=== PATIENT | male | born 1940 | race Caucasian/White ===

== ENCOUNTER 2018-08-20 10:08 | Inpatient (IN) ==
--- NOTE | 2018-08-20 11:09 | Diag Imaging Result Doc PS360 ---
EXAM: CHEST-2 VIEWS HISTORY: short of breath TECHNIQUE: Chest two views COMPARISON: 10/29/2017 FINDINGS: There are infiltrates and atelectasis in the left lung base with a small left pleural effusion. The heart remains mildly enlarged. Sternal wires are present. Tiny right pleural effusion. IMPRESSION: Left lower lobe infiltrates and atelectasis with small pleural effusions Electronically signed by Ricki Santos 08/20/2018 11:06 AM
[2018-08-20 11:17] LABS: ALB/GLOB RATIO 1.6; ALBUMIN 3.7 g/dL (3.5-5.0); CALCIUM 8.4 mg/dL (8.8-10.2); CREATININE 1.8 mg/dL (0.7-1.2); POTASSIUM 4.1 mmol/L (3.5-5.1); TOTAL BILIRUBIN 0.86 mg/dL (0.20-1.00)
[2018-08-20] MEDS ORDERED: BUMEX IV ONE (11:40)
[2018-08-20 12:14] LABS: BASO# 0.04 X1000 (0.0-0.2); BASO% 0.6 % (0.0-0.8); EOS# 0.04 X1000 (0.0-0.7); EOS% 0.6 % (0.0-10.0); LYMPH# 1.34 X1000 (1.2-3.4); LYMPH% 20.9 % (20.5-51.1); MCH 31.1 PG (27-31); MCHC 32.5 g/dL (33-37); MCV 95.7 FL (81-99); MONO# 0.66 X1000 (0.11-0.59); MONO% 10.3 % (1.7-9.3); MPV 10.4 FL (7.4-10.4); NEUT# 4.34 X1000 (1.4-6.5); NEUT% 67.6 % (42.2-75.2); PLT 171 X1000 (130-400); RBC 4.18 XMIL (4.7-6.1); RDW 16.4 % (11.5-14.5); WBC 6.42 X1000 (4.8-10.8)
[2018-08-20] MEDS ORDERED: ZOFRAN IV PRN (12:15)
[2018-08-20] MEDS ORDERED: TYLENOL PO PRN (12:15)
[2018-08-20] MEDS ORDERED: NS 1,000 ML IV ONE (12:15)
--- NOTE | 2018-08-20 12:15 | PROVIDER DOCUMENTATION ---
This chart was entered by Marilia Langston Scribe, acting as scribe for Hari Leung MD. HPI-Respiratory General - General Chief Complaint: Shortness of Breath Stated Complaint: SOB Time Seen by Provider: 08/20/18 10:31 Source: patient, family Allergies/Adverse Reactions: Patient Allergies Allergy/AdvReac Type Severity Reaction Status Date / Time Antihistamines - Piperidine Allergy Unknown Verified 04/05/15 12:07 prednisone Allergy Unknown Verified 04/05/15 12:07 Home Medications: Home Medication List Medication Instructions Recorded Confirmed Last Taken Type Furosemide [Lasix] 20 mg PO DAILY 08/20/18 08/20/18 Unknown History - History of Present Illness-Resp Nature of Presenting Problem: 78 year old male presents to the ER with complaint of SOB, coughing and leg cramps for the past few days. Pt's states he has been SOB for the past month but worsening in the past few days. Pt was on Lisinopril but states medication has been switched by PCP once coughing was noticed to increase. Pt denies fever and denies chest pain. Pt states that SOB is worse with exertion. Quality of Pain: reports: aching Onset/Duration: reports: 4 days ago Timing: reports: still present Exposure: reports: unknown cause Cough Quality/Degree: reports: moderate Episode Frequency: chronic episodes Associated Symptoms: reports: cough, shortness of breath, short of breath, wheezing. denies: chest pain/soreness, fever/chills Review of Systems - Adult - REVIEW OF SYSTEMS - ADULT Constitutional: denies: chills, fever Eyes: reports: no symptoms reported Ears, Nose, Mouth & Throat: reports: no symptoms reported Cardiovascular: denies: chest pain, palpitations Respiratory: reports: chronic cough, cough, shortness of breath, wheezing Gastrointestinal: reports: no symptoms reported Genitourinary: reports: no symptoms reported Musculoskeletal: reports: frequent leg cramps. denies: back pain Integumentary: reports: no symptoms reported Neurological: reports: no symptoms reported Psychiatric: reports: no symptoms reported Endocrine: reports: no symptoms reported Hematologic/Lymphatic: reports: no symptoms reported Allergic/Immunologic: reports: no symptoms reported All Other Systems: Reviewed and Negative Past History - Adult - PAST MEDICAL HISTORY-ADULT Review of Records: reports: Nursing Assessment Review, Medications Reviewed Cardiovascular: reports: CHF, HTN, hyperlipidemia Genitourinary: reports: kidney disease Endocrine/Immune: reports: Diabetes, thyroid disorder (hypo) - PRIOR SURGERIES/PROCEDURES Surgical/Procedure History: reports: CABG, tonsillectomy - IMMUNIZATION STATUS Childhood Immunizations: See Nurse Assessment Flu Vaccine: See Nurse Assessment - SOCIAL HISTORY Smoking: denies Physical Exam-General - CONSTITUTIONAL General Appearance: alert, mild distress - EYES Eyes: PERRL/EOMI, pink conjunctivae - HEAD, EARS, NOSE, MOUTH & THROAT HENMT: normocephalic/atraumatic, normal ENT inspection - NECK Neck: supple, normal inspection - RESPIRATORY Respiratory: decreased breath sounds, rales - CARDIOVASCULAR Cardiovascular: normal peripheral pulses, regular rate, rhythm - MUSCULOSKELETAL Back Exam: no CVA tenderness, no vertebral tenderness Extremity: pedal edema (+1 ankles) - SKIN Integumentary: normal color, warm/dry - NEUROLOGIC Neurologic: grossly normal, no motor/sensory deficits - PSYCHIATRIC Psych/Mental Status: normal mood/affect, normal thought content, normal thought process, oriented x 3 Progress - PLAN OF CARE/RESULTS Progress/Plan/Lab Results: Vital Signs - 8 hr 08/20/18 10:17 Temperature 98.3 F Pulse Rate 97 H Respiratory Rate 20 Blood Pressure 145/82 O2 Sat by Pulse Oximetry 89 L Laboratory Results - last 24 hr 08/20/18 08/20/18 08/20/18 09:50 09:50 09:50 Sodium 136 Potassium 4.1 Chloride 99 Carbon Dioxide 23 L Anion Gap 14 BUN 23 H Creatinine 1.8 H Estimated GFR/1.73 m2 37 BUN/Creatinine Ratio 13 Glucose 146 H Calculated Osmolality 278 Calcium 8.4 L Total Bilirubin 0.86 AST 37 H ALT 44 Alkaline Phosphatase 123 H Creatine Kinase 200 Troponin T 0.062 [place]-U[place]qnhq[place] Pept 84253 H Total Protein 6.0 L Albumin 3.7 Globulin 2.3 Albumin/Globulin Ratio 1.6 Orders Category Date Time Status CHEST-2 VIEWS [RAD] Stat Exams 08/20/18 10:43 Completed BNP [PRO B-NATRIURETIC PEPTIDE] Stat Lab 08/20/18 09:50 Completed CBC WITH ELECTRONIC DIFF [HEME] Stat Lab 08/20/18 09:50 Results CMP [COMPREHENSIVE METABOLIC PANEL] [CHEM] Stat Lab 08/20/18 09:50 Completed Cardiac Profile [CK PROFILE] [SP CHEM] Stat Lab 08/20/18 09:50 Completed TROPONIN T Stat Lab 08/20/18 09:50 Completed Bumetanide [Bumex] Med 08/20/18 11:40 Discontinued 1 mg IV NOW ONE Result Diagrams: 08/20/18 09:50 08/20/18 09:50 - CONSULTS/PCP/HOSPITALIST Notification #1 *Consult/PCP/Hospitalist*: Dr. Soto Consult Disposition: Admit Departure - Departure Date of Disposition Decision: 08/20/18 Time of Disposition Decision: 12:14 DIAGNOSIS: CHF (congestive heart failure) Disposition: ADMITTED INPATIENT 09 Certified Medical Emergency: Emergent Condition: Good Referrals and Follow-Ups: Vianca Soto MD [Primary Care Provider] - - Critical Care Note This patient required my direct & personal management of CC.: No Attestation - Physician/ PATT Attestation The physician spent face to face time with patient:: Yes Advanced Practice Provider documentation review:: Supervising physician onsite and consulted in the evaluation and care of this patient. The physician did have a face to face encounter with the patient. This chart was documented by the indicated scribe, (Marilia Langston, Scribe) and accurately reflects the services I performed and decisions made by me, Hari Leung MD, as attested by the provider's signature.
--- NOTE | 2018-08-20 17:41 | HISTORY AND PHYSICAL ---
CHIEF COMPLAINT: Shortness of breath on exertion. No PND. No orthopnea. No swelling of feet. HISTORY OF PRESENT ILLNESS: He is a 78-year-old white male who was last seen in my office in September of last year, came in with shortness of breath. The patient was seen by Dr. Bermudez. Clinical exam compatible with CHF. He has ischemic cardiomyopathy, EF 27%. He was seen before by Dr. Piedra as well as back closer in [place]. Apparently, he was seeing side effects of lisinopril and he stopped for a while and he was given Bumex. Basically admitted to the hospital with acute decompensated congestive heart failure. The patient's family was at bedside in the emergency room. He is waiting to be admitted in Telemetry. PAST MEDICAL HISTORY: 1. BPH. 2. Chronic kidney disease stage 3. 3. Chronic systolic heart failure, EF 27%. 4. Coronary artery disease. 5. Hypertension. 6. Hyperlipidemia. 7. Hypothyroidism. 8. Vitamin D deficiency. PAST SURGICAL HISTORY: Tonsillectomy, bypass x 2 in 2014. MEDICINES: Aspirin, lisinopril 5 mg daily, Bumex and nitroglycerin as needed. ALLERGIES: Reported to prednisone, Demerol, antihistamines. SOCIAL HISTORY: and 2 kids, retired. Lives in [place]. No smoking. No alcohol. No drug abuse. FAMILY HISTORY: Father of stroke at 77. Mom at 87, cause was not known. Last physical exam in my office in September 2017. Patient is not interested in health maintenance, which includes vaccinations, colonoscopy. He does have a living will, DNR. REVIEW OF SYSTEMS: HEENT: No headache. No vision problem. No earache. No sore throat. Neck: No goiter. No lymphadenopathy. No bruit. Cardiopulmonary: History of exertion cough. No chest pain. No PND. No orthopnea. No swelling of feet. Gastrointestinal: No nausea, vomiting, abdominal pain. Genitourinary: No history of hesitancy, frequency, dysuria. Musculoskeletal: No joint pain. Neurologic: No focal symptoms or weakness. PHYSICAL EXAMINATION: VITAL SIGNS: Afebrile. Blood pressure 134/86, 93% on room air. He is not in respiratory distress. HEENT: Atraumatic, normocephalic. Pupils equal, react to light. No anemia. No cyanosis. No jaundice. NECK: JVD slightly elevated. CHEST: Bilateral air entry. No signs of pneumonitis. HEART: Heart sounds are regular. No significant murmurs noted. No gallop. ABDOMEN: Belly is soft, nontender. Good bowel sounds. No peripheral edema, cyanosis. NEUROLOGIC: No obvious neurological deficits. INVESTIGATIONS: CBC: White cell count 6.4, hematocrit 40, platelets 177,000. SMA-7: Sodium 136, potassium 4.1, BUN 23, creatinine 1.8, glucose 146. AST slightly elevated. ProBNP was 35,000. Chest x-ray: Mild CHF. ASSESSMENT AND PLAN: 1. A 78-year-old white male with known history of ischemic cardiomyopathy, EF less than 30%. Stopped taking all the medications. Came in with decompensated congestive heart failure. Plan is oxygen. Will start on Entresto. Repeat the echocardiography. He is to follow up on the labs in the morning. 2. Chronic kidney disease. Creatinine is stable. 3. CAD status post bypass surgery, on aspirin. 4. He is also a candidate for AICD. 5. Hyperlipidemia. Last LDL 180 and he is not interested in taking the statin drugs. 6. Vitamin D deficiency on replacement therapy. 7. Hypothyroidism, stable. Mildly elevated TSH subclinical. 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 Boudreaux. 9. Living will, he is a DNR. Will ask Dr. Piedra to do Cardiology Consult in the morning and will explain the side effects on the medications. cc: Anuj Soto MD MTDD
[2018-08-21] MEDS: ROBITUSSIN PO PRN ×2 (00:08→21:54)
[2018-08-21 05:30] LABS: ALLEN TEST YES; BE -0.6 mmoll (-3.0-3.0); BLOOD TYPE ARTERIAL; HCO3-(ACT) 24.3 mmoll (20.0-26.0); METHB 0.8 % (0.0-1.5); O2(CT) 19.6 mL/dL (15.0-23.0); O2HB 93.7 % (95.0-99.0); PCO2(98.6) 36 mmHg (35-45); PO2(98.6) 74 mmHg (60-100); SAMPLE BLOOD; SAO2 96.5 % (95.0-100.0); THB 14.9 g/dL (11.5-17.4); pH(98.6) 7.42 (7.35-7.45)
[2018-08-21 05:31] LABS: MODALITY CANNULA
[2018-08-21 07:38] LABS: BASO# 0.03 X1000 (0.0-0.2); BASO% 0.4 % (0.0-0.8); EOS# 0.13 X1000 (0.0-0.7); EOS% 1.9 % (0.0-10.0); HEMATOCRIT 37.6 % (42.0-52.0); HEMOGLOBIN 12.2 g/dL (14.0-18.0); LYMPH# 1.55 X1000 (1.2-3.4); LYMPH% 22.8 % (20.5-51.1); MCHC 32.4 g/dL (33-37); MCV 95.7 FL (81-99); MONO# 0.92 X1000 (0.11-0.59); MONO% 13.5 % (1.7-9.3); MPV 9.8 FL (7.4-10.4); NEUT# 4.17 X1000 (1.4-6.5); NEUT% 61.4 % (42.2-75.2); PLT 172 X1000 (130-400); RBC 3.93 XMIL (4.7-6.1); RDW 16.4 % (11.5-14.5)
--- NOTE | 2018-08-21 07:53 | EKG Report ---
Test Performed on : 08/21/2018 07:22:46 AM Test Reason : cp Blood Pressure : / mmHG Vent. Rate : 087 BPM Atrial Rate : 087 BPM P-R Int : 168 ms QRS Dur : 104 ms QT Int : 410 ms P-R-T Axes : 031 001 025 degrees QTc Int : 493 ms Normal sinus rhythm. Cannot rule out Inferior infarct (cited on or before 05-APR-2015) Abnormal ECG When compared with ECG of 20-AUG-2018 10:16, (Unconfirmed) premature ventricular complexes. are no longer present ST now depressed in Anterior leads Confirmed by Lizet DANIELS, Attila ([id number]) on 08/21/2018 9:21:04 AM
[2018-08-21 08:00] LABS: ALB/GLOB RATIO 1.4; ALBUMIN 3.6 g/dL (3.5-5.0); CALCIUM 8.5 mg/dL (8.8-10.2); CREATININE 1.8 mg/dL (0.7-1.2); MAGNESIUM 2.3 mg/dL (1.5-2.7); POTASSIUM 3.9 mmol/L (3.5-5.1); TOTAL BILIRUBIN 0.55 mg/dL (0.20-1.00); TOTAL PROTEIN 6.2 g/dL (6.3-8.3)
[2018-08-21] MEDS ORDERED: ENTRESTO 24 MG-26 MG TABLET PO SCH (09:00)
--- NOTE | 2018-08-21 10:32 | Diag Imaging Result Doc PS360 ---
EXAM: CHEST-2 VIEWS HISTORY: hypoxia TECHNIQUE: Chest two views COMPARISON: 08/20/2018 FINDINGS: There are infiltrates and atelectasis in the left lung base. These findings are slightly more pronounced than on the prior study. There is a small to moderate-sized left pleural effusion with a small right pleural effusion. Cardiomegaly remains. No pulmonary edema. Sternal wires are present. IMPRESSION: Mild interval worsening. Electronically signed by Ricki Santos 08/21/2018 10:29 AM
[2018-08-21] MEDS ORDERED: LASIX IV ONE (13:08)
--- NOTE | 2018-08-21 13:20 | EKG Report ---
Test Performed on : 08/20/2018 10:16:05 AM Test Reason : ED. NO ORDER IN [place] Blood Pressure : / mmHG Vent. Rate : 094 BPM Atrial Rate : 094 BPM P-R Int : 168 ms QRS Dur : 130 ms QT Int : 384 ms P-R-T Axes : 043 011 025 degrees QTc Int : 480 ms Sinus rhythm. with occasional premature ventricular complexes. Possible Left atrial enlargement Nonspecific intraventricular block Possible Inferior infarct (cited on or before 05-APR-2015) Abnormal ECG When compared with ECG of 29-OCT-2017 12:37, premature ventricular complexes. are now present Unconfirmed Result
--- NOTE | 2018-08-21 14:16 | CARDIOLOGY CONSULTATION ---
DATE: 08/21/2018 REASON FOR CONSULTATION: Congestive heart failure. HISTORY: Mr. Grayson Waldron is a 78-year-old gentleman with history of coronary artery disease, coronary artery bypass grafting, ischemic cardiomyopathy, mitral regurgitation comes with complaints of increasing shortness of breath. 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 He was taking lisinopril. However, that was stopped because of side effects and he was also on diuretics which were again discontinued. Patient comes with having noticed increasing dyspnea on exertion and was orthopneic, admitted to the hospital. The patient is in congestive heart failure. X-ray revealed pleural effusion and heart failure. The patient denies chest pain shortness of breath suggestive of angina. However as far as the dyspnea on exertion is concerned he says it has progressed over the last few months and decompensated recently. He also has chronic renal insufficiency. In the past he said that he was intolerant to Coreg which caused him significant weakness while he was in a store. He had something like a stroke-like features which he mentions. There is no palpitations, there is no dizziness or syncope. REVIEW OF SYSTEM: GI: There is no history of nausea, vomiting, diarrhea. There is no history of hematemesis or melena. Central nervous system: No focal weakness to suggest a CVA or TIA. Genitourinary: There is no dysuria or hematuria. PAST MEDICAL HISTORY: 1. Coronary artery disease, status post coronary artery bypass grafting in 2004 with ARREDONDO to left anterior descending artery, SVG to OM. 2. Ischemic cardiomyopathy. Last ejection fraction 25% on record. 3. Moderate mitral regurgitation. 4. History of heart failure. 5. Impaired glucose tolerance. 6. Hypothyroidism. 7. Chronic renal insufficiency. Creatinine of 1.8. 8. Vitamin D deficiency. 9. Hyperlipidemia. SOCIAL HISTORY: Patient is , retired lives in [place]. He does not smoke, does not drink. ALLERGIES: Allergic to Demerol, prednisone. Intolerant to Bystolic. He has had side effects with Coreg as mentioned above. PHYSICAL EXAMINATION: Vital Signs: Blood pressure was 134/86. Cardiovascular: First and second heart sounds were heard. Jugular venous pressure was elevated. There was a soft systolic murmur. Respiratory System: Examination revealed dullness at both bases with inspiratory crackles. Abdomen: Soft, obese nontender. There was no guarding or rigidity. Bowel sounds were heard. Central nervous system: Alert and oriented. Moving all 4 extremities. Extremities: Examination of extremities revealed trace edema. LABORATORY EXAMINATION: Revealed sodium 136, potassium 3.9, BUN 22, creatinine 1.8. ProBNP elevated at 31,096. Troponin was negative. Chest x-ray, revealed small to moderate left pleural effusion with a small right pleural effusion, cardiomegaly with worsening of effusion. Initial chest x-ray revealed left lower lobe infiltrate with bilateral effusions. ASSESSMENT AND PLAN: 1. Mr. Philip Waldron is a 78-year-old gentleman who has coronary artery disease, status post coronary artery bypass grafting, ischemic cardiomyopathy, ejection fraction of 25% in the past and chronic renal insufficiency. He comes in with complaints of increasing shortness of breath or orthopnea. Patient is in congestive heart failure with bilateral pleural effusion. His echocardiogram today is pending. 2. As far as medications are concerned, I had a very detailed discussion with the patient, his son as well as his . He has been started on Entresto. We will continue Entresto on a twice daily basis. 3. As far as beta-blockers are concerned, he had problems with Bystolic and with Coreg in the past. He had some stroke-like symptoms which he said was weakness. No definite stroke. As a result we will avoid put medications and put him on Toprol-XL 25 mg to be taken twice daily and we will titrate dosage as required. 4. As far as diuretics are concerned, he received dosage of Bumex. I will put him on Lasix 40 mg IV twice daily and we will get a chest x-ray in the morning. If necessary if his pleural effusion does not improve we will probably need to tap the left pleural effusion if required which we will evaluate and probably have that done if required on Tuesday. 5. As far as his LDL is concerned was 180. I impressed upon him that he needs to be on medications. I have started him on Lipitor 40 mg a day. 6. He is a candidate for automatic implantable cardioverter-defibrillator placement. However he has not been taking any guidelines based management and I have impressed upon him that he did he will benefit from an automatic implantable cardioverter-defibrillator placement as an outpatient. He is willing to consider that. In the past he did not want any automatic implantable cardioverter-defibrillator placement. Thank you for the consult. We will follow hospital course. cc: MD Anuj Wolfe MD
--- NOTE | 2018-08-21 17:56 | ECHO REPORT ---
ORDER DATE: 08/20/2018 INTERPRETING PHYSICIAN: Dr. Marsh REQUESTING PHYSICIAN: Dr. Anuj Soto. CLINICAL INDICATIONS: A 78-year-old male with dyspnea and cough. M-MODE MEASUREMENTS: Right ventricle: cm. Left ventricle end diastole: 6.8 cm. Left ventricle end systole: 6.6 cm. Posterior wall: 0.9 cm. Interventricular septum: 0.9 cm. Left atrium: 4.0 cm. Aortic root: 3.5 cm. SUMMARY OF 2-DIMENSIONAL IMAGING: The study is difficult because the left ventricular chamber is dilated significantly. The left ventricular systolic function is severely impaired in the range of 18-20%. There is akinesis of the entire inferior wall, dyskinesis of the left lateral wall and posterior segment of the left ventricle. There is thinning of the posterior wall. The aortic valve shows sclerosis of the cusp without aortic stenosis. Maximum gradient is 12 mmHg; mean gradient is 7 mmHg. The pulmonic valve shows moderate degree of regurgitation. Tricuspid valve shows moderate degree of regurgitation. Pulmonary pressure estimated at 51 mmHg. Mitral valve is thickened. Color flow mapping of the mitral valve indicates moderately severe to possibly severe degree of mitral regurgitation. The doppler pattern of the pulmonary venous flow shows predominance of the diastolic component with a short deceleration time. The mitral inflow shows a single filling wave. The patient appears to be in either atrial flutter or atrial fibrillation. Both atria are significantly dilated. There is no pericardial effusion, mass or thrombus. The right ventricle is small in size with slight dysfunction. The study is consistent with ischemic cardiomyopathy. Clinical correlation is recommended. cc: MD Anuj Desir MD [facility]
[2018-08-21] MEDS: LOVENOX SUBQ SCH (18:31)
--- NOTE | 2018-08-21 18:41 | PROGRESS NOTE ---
DATE: 08/21/2018 SUBJECTIVE: Appreciated Dr. Leal consult. Patient had cough last night. I related to the family that it is related to cardiac asthma and congestive heart failure, nothing to do with the Lisinopril. The patient's is very meticulous of the side effects and he was afraid of taking any medications. OBJECTIVE: On exam, he has elevated JVD. Slight gallop. Belly is soft, nontender. No edema noted. INVESTIGATIONS: Chest x-ray with worsening of pleural effusions bilaterally. CBC: White cell count 6.8, hematocrit 37.6, platelet 172. ABG: pH is 7.42, pCO2 of 36, pO2 of 74, on 28%. SMA- 7: Creatinine 1.8. ProBNP 31,000. Echocardiography showed pulmonary hypertension, ischemic cardiomyopathy, EF less than 20%. ASSESSMENT: A 78-year-old, white male, ischemic cardiomyopathy, acute decompensated congestive heart failure due to noncompliance. PLAN: 1. Daily weights, fluid restrictions, IV Lasix 40 q.12 and daily BMP and chest x-ray. 2. Optimize the treatment by Entresto and metoprolol and also added Lipitor. 3. He has a living will, Do Not Resuscitate. 4. Deep vein thrombosis prophylaxis with Lovenox. 5. Also consider AICD down the line I appreciated Cardiology consult. LEVEL OF DOCUMENTATION: 25 minutes. cc: Anuj Soto MD
[2018-08-21] MEDS: LIPITOR PO SCH (21:35)
[2018-08-21] MEDS: TOPROL XL PO SCH (21:35)
[2018-08-21] MEDS: LASIX IV SCH (21:35)
[2018-08-21] MEDS: ENTRESTO 24 MG-26 MG TABLET PO SCH (21:35)
--- NOTE | 2018-08-22 06:53 | EKG Report ---
Test Performed on : 08/22/2018 06:48:50 AM Test Reason : cad chf Blood Pressure : / mmHG Vent. Rate : 077 BPM Atrial Rate : 077 BPM P-R Int : 164 ms QRS Dur : 120 ms QT Int : 444 ms P-R-T Axes : 019 -03 117 degrees QTc Int : 502 ms Sinus rhythm. with occasional premature ventricular complexes. Possible Left atrial enlargement Nonspecific intraventricular conduction delay Nonspecific ST and T wave abnormality Abnormal ECG When compared with ECG of 21-AUG-2018 07:22, premature ventricular complexes. are now present T wave inversion now evident in Anterior leads Confirmed by Lizet DANIELS, Attila ([id number]) on 08/22/2018 8:38:01 AM
--- NOTE | 2018-08-22 07:20 | Diag Imaging Result Doc PS360 ---
EXAM: CHEST-2 VIEWS HISTORY: hypoxia TECHNIQUE: Chest two views COMPARISON: 08/21/2018 FINDINGS: Interval decrease in the atelectasis and infiltrates in the left lung base. There are small pleural effusions which remain. Heart is mildly prominent. Sternal wires are present. No pulmonary edema. IMPRESSION: Overall interval improvement. Electronically signed by Ricki Santos 08/22/2018 7:18 AM
[2018-08-22 07:26] LABS: CALCIUM 8.2 mg/dL (8.8-10.2); POTASSIUM 3.5 mmol/L (3.5-5.1)
[2018-08-22] MEDS ORDERED: TOPROL XL PO SCH (09:00)
[2018-08-22] MEDS: ENTRESTO 24 MG-26 MG TABLET PO SCH ×2 (09:44→20:34)
[2018-08-22] MEDS: ASPIRIN PO SCH (09:44)
[2018-08-22] MEDS: TOPROL XL PO SCH ×2 (09:45→20:34)
[2018-08-22] MEDS: LASIX IV SCH ×2 (09:45→20:34)
[2018-08-22] MEDS: LOVENOX SUBQ SCH (17:28)
--- NOTE | 2018-08-22 20:13 | PROGRESS NOTE ---
DATE: 08/22/2018 SUBJECTIVE: The patient's coughing is much better. Results of echocardiography findings discussed; son is at bedside. He had excellent diuresis, decrease in the PND and orthopnea. OBJECTIVE: On examination, temperature is 98.1 degrees, pulse is 75, blood pressure is 113/50. JVD is decreased. Gallop is decreased. Improved air entry on the left side at the base. No peripheral edema. Intake and output so far about -5 L. LABORATORY DATA: SMA 7: Sodium 140, potassium 3.5, BUN 20, creatinine 2.0. DIAGNOSTIC DATA: Echocardiography findings: EF is less than 20%. ASSESSMENT AND PLAN: 1. Acute ischemic cardiomyopathy, congestive heart failure due to systolic dysfunction. Excellent management by Dr. Leal. Family agreed about his recommendations which include aspirin, Entresto, intravenous Lasix twice daily. 2. Deep venous thrombosis prophylaxis with Lovenox. 3. Optimize the treatment for congestive heart failure with metoprolol and also keep the LDL less than 70. Added on Lipitor. 4. We will check the BMP and chest x-ray in the morning. 5. Chronic kidney disease, stable. Will follow up. Level of documentation 25 minutes. cc: Anuj Soto MD
[2018-08-22] MEDS: LIPITOR PO SCH (20:34)
[2018-08-23 07:38] LABS: CALCIUM 7.8 mg/dL (8.8-10.2); CREATININE 1.8 mg/dL (0.7-1.2); POTASSIUM 3.4 mmol/L (3.5-5.1)
--- NOTE | 2018-08-23 07:48 | Diag Imaging Result Doc PS360 ---
EXAM: CT THORAX W/O CONTRAST INDICATION: assess for pleural effusion TECHNIQUE: This exam was performed using automated exposure control, adjustment of mA or kV according to patient size, and/or use of iterative reconstruction technique. COMPARISON: None. FINDINGS: There is a moderate-sized left pleural effusion and a small to moderate-sized right effusion. The effusion on the left appears partially loculated. There is atelectasis adjacent to the effusions bilaterally. There is a focal groundglass opacity in the right upper lobe on image 43 of series 3 anteriorly suggesting nonspecific focal pneumonitis. There is moderate cardiomegaly. There are CABG changes. There is extensive aortic atherosclerotic disease. There are small shotty nonspecific mediastinal lymph nodes. Limited views of the upper abdomen reveal an atrophic left kidney. The bony structures of the thorax are grossly intact. IMPRESSION: 1.Partially loculated moderate-sized left pleural effusion and small to moderate-sized layering right effusion with adjacent atelectasis bilaterally. 2.Small groundglass focus involving the right upper lobe as described suggesting nonspecific mild focal pneumonitis. 3.Cardiomegaly. 4.Other incidental/nonacute findings detailed above. Electronically signed by Philip Cavazos 08/23/2018 7:46 AM
[2018-08-23] MEDS ORDERED: KLOR-CON PO ONE (08:13)
--- NOTE | 2018-08-23 09:54 | Diag Imaging Result Doc PS360 ---
CHEST-2 VIEWS - 08/23/2018 INDICATION: hypoxia COMPARISON: 08/22/2018 FINDINGS: There has been decrease in the small left pleural effusion. There is also decrease in the trace right pleural effusion. There is slight decrease in the cardiomegaly. Pulmonary vascularity is top normal. No infiltrates or definite edema. IMPRESSION: Improvement from prior. Electronically signed by Orlin Silva 08/23/2018 9:52 AM
[2018-08-23] MEDS: ASPIRIN PO SCH (10:42)
[2018-08-23] MEDS: LEVAQUIN PO SCH ×2 (10:44→11:56)
[2018-08-23] MEDS: TOPROL XL PO SCH ×2 (10:47→21:58)
[2018-08-23] MEDS: ENTRESTO 24 MG-26 MG TABLET PO SCH (10:48)
[2018-08-23] MEDS: LASIX IV SCH ×2 (10:51→11:57)
[2018-08-23 12:28] LABS: INR 1.21; PROTIME 16.3 Seconds (11.0-16.0)
[2018-08-23 12:29] LABS: PTT 27.5 Seconds (22.3-41.8)
--- NOTE | 2018-08-23 13:04 | CARDIOLOGY PROGRESS NOTE ---
DATE: 08/23/2018 SUBJECTIVE: Patient's shortness of breath has improved. He denies chest pain. There are no palpitations. He does not complain of any dizziness or syncope. OBJECTIVE: On examination, blood pressure was 118/69. First and second heart sounds were heard. There was a soft systolic murmur. Respiratory system: Dullness at bases. Abdomen: Soft, nontender. There was no guarding or rigidity. Bowel sounds were heard. Central nervous system: Alert, oriented, and was moving all 4 extremities. Examination of extremities revealed no pedal edema. DIAGNOSTIC STUDIES: His CT scan was done of his chest, which revealed partially loculated moderate-sized left pleural effusion, small to moderate size layering in the right pleural effusion with nonspecific focal pneumonitis, right upper lobe. PROBLEM LIST: 1. Coronary artery disease, status post coronary artery bypass grafting. 2. Systolic heart failure. 3. Severe left ventricular dysfunction and congestive heart failure. PLAN: 1. We will decrease his Lasix to 40 mg a day. 2. Given his focal likely pneumonitis, I have added Levaquin 500 mg a day. 3. He has got a moderate-sized pleural effusion which is on the left which is loculated. This I do not think will improve with diuretics alone. I have discussed with him, his son, and his that would recommend ultrasound-guided thoracentesis which he is willing to undergo. We will send the fluid for cultures as well as cytology. 4. I have not made any other changes to his medication. cc: MD Anuj Wolfe MD
--- NOTE | 2018-08-23 14:18 | Diag Imaging Result Doc PS360 ---
CHEST-2 VIEWS - 08/23/2018 2:02 PM INDICATION: POST LEFT THORA COMPARISON: 9:44 AM FINDINGS: There has been good drainage of the left pleural effusion. No new abnormalities. No pneumothorax. There is a trace residual right pleural effusion. IMPRESSION: Successful left thoracentesis with no complication. Electronically signed by Orlin Silva 08/23/2018 2:16 PM
--- NOTE | 2018-08-23 14:21 | Diag Imaging Result Doc PS360 ---
US THORACENTESIS W/IMAGE GUIDE - 08/23/2018 INDICATION: left pleural effusion TECHNIQUE: The risks and benefits of the procedure were discussed with the patient. All questions were answered. Written and verbal informed consent was obtained. Overlying skin was prepped and draped in sterile fashion. Anesthesia was achieved with injection of 10 cc of 1% lidocaine. COMPARISON: CT from 08/23/2018 7:26 AM FINDINGS: Ultrasound scanning demonstrated a trace right and small to moderate left pleural effusion. The left pleural fluid was drained. 700 cc were removed. Due to the slow nature of the drainage, the patient was sitting upright with his legs very dependent for rather long period of time. Towards the end of the drainage, the patient became unresponsive. A critical assistance team call was performed. The procedure was ended successfully. Nursing and respiratory therapy came to check on the patient immediately. Within about three minutes, the patient had become somewhat more responsive. Vital signs were checked and these were normal. Within five minutes after the onset of unresponsiveness, the patient had returned to baseline. Postprocedural chest x-rays demonstrated no complication. IMPRESSION: Successful right-sided thoracentesis. The patient became orthostatic due to being upright for a rather long duration during the procedure and lost consciousness for about three minutes. No complication otherwise. Electronically signed by Orlin Silva 08/23/2018 2:19 PM
[2018-08-23] MEDS: LOVENOX SUBQ SCH (18:20)
--- NOTE | 2018-08-23 21:31 | PROGRESS NOTE ---
DATE: 08/23/2018 SUBJECTIVE: The patient is doing better. Apparently had a CT of the chest, bilateral pleural effusion left worse than the right side. His CHF symptoms are much improved. Apparently, he had a thoracentesis done on the left side due to loculated effusion. Removed 700 mL of fluid. The patient had a syncope spell due to orthostatic hypotension. Entresto was held. IV Lasix was decreased. Currently, patient is doing very well. EXAMINATION: Vital Signs: Temperature is 98, pulse is 80, blood pressure 121/62 at 2 L nasal cannula 99%. HEENT Exam: Within normal limits. Chest: Auscultation this morning with crackles on the left lung. Heart: Sounds are regular. No gallop. Belly: Soft, nontender. No edema. ASSESSMENT: 1. Acute congestive heart failure due to systolic dysfunction. Ejection fraction is less than 30%. 2. Loculated pleural effusion, status post thoracentesis. 3. History of noncompliance. PLAN OF CARE: Hold the Entresto. Decrease IV Lasix and repeat the chest x-ray, BMP in the morning. Check orthostatic blood pressure. Slowly titrate Entresto. Continue on metoprolol and Lipitor. Laboratory data showed hypokalemia. Creatinine 1.8 and replace the potassium today by mouth. Currently stable. Also, we will evaluate the AICD down the line if the patient agrees. CODE STATUS: Living Will, Do Not Resuscitate. LEVEL OF DOCUMENTATION: 35 minutes. cc: Anuj Soto MD
[2018-08-23] MEDS: LIPITOR PO SCH ×2 (21:58→21:59)
--- NOTE | 2018-08-24 07:40 | Diag Imaging Result Doc PS360 ---
EXAM: CHEST-2 VIEWS 08/24/2018 HISTORY: hypoxia TECHNIQUE: PA and lateral chest COMMENT: There is blunting of both costophrenic angles. The heart size is slightly enlarged. The lungs are otherwise clear and unchanged since 08/23/2018. IMPRESSION: Small bilateral pleural effusions. Electronically signed by Marco Garland 08/24/2018 7:38 AM
[2018-08-24 08:00] LABS: CALCIUM 8.2 mg/dL (8.8-10.2); CREATININE 1.8 mg/dL (0.7-1.2); POTASSIUM 3.8 mmol/L (3.5-5.1)
[2018-08-24] MEDS: LEVAQUIN PO SCH ×2 (10:04→22:44)
[2018-08-24] MEDS: TOPROL XL PO SCH ×2 (10:05→20:22)
[2018-08-24] MEDS: ASPIRIN PO SCH (10:05)
[2018-08-24] MEDS: LASIX IV SCH (10:05)
--- NOTE | 2018-08-24 16:09 | CARDIOLOGY PROGRESS NOTE ---
DATE: 08/24/2018 SUBJECTIVE: The patient is status post thoracentesis. Does not complain of any chest pain. His shortness of breath has improved. Does not complain of any palpitations. Blood pressure was 126/66. OBJECTIVE: Heart: First and second heart sounds were heard. There was dullness at the bases with a few scattered crepitations. Abdomen: Abdomen was soft, nontender. There was no guarding or rigidity. Bowel sounds were heard. Central nervous system: Alert and was moving all 4 extremities. Extremities: Examination of extremities revealed no pedal edema. HEENT: Atraumatic, normocephalic. Pupils were equal, reacting to light. LABS: Sodium 139, potassium 3.8, BUN 24, creatinine 1.8. ProBNP elevated at 31,096. ASSESSMENT AND PLAN: Mr. Philip Waldron underwent thoracentesis. Symptomatically, he has improved. He has a history of coronary artery disease, coronary artery bypass grafting, congestive heart failure, severe left ventricular dysfunction. RECOMMENDATIONS: 1. I have advised physical therapy and occupational therapy to help with mobility and movement. 2. He is on multiple medications at the present time for his severe LV dysfunction. I have not made any changes. 3. He is on Lasix 40 mg IV daily. Before discharge, we will transition him to p.o. Lasix. 4. He had an infiltrate noted on the CT scan. Started on Levaquin. Does not complain of any allergies. 5. Hyperlipidemia. He is to continue with atorvastatin. 6. As far as Entresto is concerned, would recommend restarting his Entresto in the morning, decrease his Lasix to 40 mg p.o. daily. I suspect his renal function worsened secondary to IV diuresis. cc: MD Anuj Wolfe MD
[2018-08-24] MEDS: LOVENOX SUBQ SCH (18:26)
[2018-08-24] MEDS: LIPITOR PO SCH (20:22)
--- NOTE | 2018-08-24 20:49 | PROGRESS NOTE ---
DATE: 08/24/2018 SUBJECTIVE: Last night, his blood pressure was dropped to 70 orthostatic total. He was negative for 8 L of fluid. is at bedside. Chest x-ray is improving. This morning blood pressure dropped to 100. EXAMINATION: Vital Signs: Temperature is 97.9, pulse is 85, blood pressure 134/69. Neck: On exam, JVD is decreased. Lungs: Good air entry. Decreased crackles. Heart: Sounds are regular. Extremities: No peripheral edema. LABS: Sodium 139, potassium 3.8, BUN 24, creatinine 1.8. ASSESSMENT AND PLAN: 1. Acute decompensated congestive heart failure due to ischemic cardiomyopathy. 2. Noncompliance. 3. Orthostatic hypotension due to over-diuresis. 4. Chronic kidney disease. Plan is change the Lasix to p.o. daily, metoprolol 25 p.o. b.i.d., Entresto will slowly start. 5. Hyperlipidemia on Lipitor contributing to orthostatic blood pressure changes. 6. Deep venous thrombosis prophylaxis with Lovenox. LEVEL OF DOCUMENTATION: 25 minutes. cc: Anuj Soto MD
[2018-08-25 07:28] LABS: CALCIUM 8.7 mg/dL (8.8-10.2); CREATININE 1.8 mg/dL (0.7-1.2)
--- NOTE | 2018-08-25 08:24 | EKG Report ---
Test Performed on : 08/25/2018 08:16:24 AM Test Reason : CP Blood Pressure : / mmHG Vent. Rate : 085 BPM Atrial Rate : 085 BPM P-R Int : 160 ms QRS Dur : 130 ms QT Int : 404 ms P-R-T Axes : 044 -16 131 degrees QTc Int : 480 ms Normal sinus rhythm. Possible Left atrial enlargement Left ventricular hypertrophy with QRS widening and repolarization abnormality Inferior infarct , age undetermined Abnormal ECG When compared with ECG of 22-AUG-2018 06:48, premature ventricular complexes. are no longer present T wave inversion no longer evident in Anterior leads Confirmed by Ramu DANIELS, Ezekiel Calloway ([id number]) on 08/27/2018 4:38:49 PM
[2018-08-25] MEDS: ENTRESTO 24 MG-26 MG TABLET PO SCH ×2 (11:01→21:42)
[2018-08-25] MEDS: TOPROL XL PO SCH ×2 (11:01→21:42)
[2018-08-25] MEDS: PLAVIX PO SCH (11:01)
[2018-08-25] MEDS: LEVAQUIN PO SCH (11:02)
[2018-08-25] MEDS: ASPIRIN PO SCH (11:02)
[2018-08-25] MEDS: LASIX PO SCH (11:02)
[2018-08-25] MEDS: LOVENOX SUBQ SCH (11:05)
--- NOTE | 2018-08-25 15:35 | CARDIOLOGY PROGRESS NOTE ---
DATE: 08/25/2018 PROBLEM LIST: 1. Coronary artery disease. 2. Severe left ventricular dysfunction. 3. Congestive heart failure. 4. Pleural effusion. 5.Pneumonia 6. Nonqmi new SUBJECTIVE: The patient had chest discomfort overnight and cardiac enzymes were abnormal. He had abnormal cardiac enzymes suggestive of non-Q-wave myocardial infarction. We had a detailed discussion with the patient. He does not want to pursue any invasive coronary angiography. He is pain free no worsening sob. Complains of feeling weak. PHYSICAL EXAMINATION: Vital Signs: Blood pressure was 102/70. Cardiovascular: First and second heart sounds were heard. There was no S3 gallop. Respiratory: Decreased breath sounds at the bases. Abdomen: Soft.Extremities no pedal edema. I had a detailed discussion with the patient and the patient's . They do not want to be on any medications as listed below. He does not want to be taking Plavix, Lovenox, beta-blockers, or atorvastatin either. Risks and benefits of all the medications were explained to him. I also explained to the patient as to why Plavix was started today. We will also inform Dr. Soto of patients wishes. cc: MD Anuj Wolfe MD [facility]
[2018-08-25] MEDS: ROBITUSSIN PO PRN (17:24)
--- NOTE | 2018-08-25 18:37 | PROGRESS NOTE ---
DATE: 08/25/2018 CHIEF COMPLAINT: Chest pain last night. PHYSICAL EXAMINATION: On examination, temperature is 98 degrees, pulse is 78, blood pressure is 120/64.HEENT: Exam within normal limits. Chest is clear. Heart sounds are regular. Belly is soft, nontender. No edema noted. INVESTIGATIONS: EKG: Normal sinus, nothing acute. Laboratories: Creatinine 1.8. CK was negative, troponin was positive. ASSESSMENT AND PLAN: 1. Non-Q wave myocardial infarction. Discussed with Dr. Leal. Transferred to [facility]. Initiated Plavix, Lovenox, metoprolol. The patient is refusing for any treatment. 2. The patient and family think Levaquin is causing the problem. I do not see any evidence of infection. Discontinue Levaquin. 3. Continue on Lovenox and aspirin and Entresto and change the Lasix 40 daily. 4. The patient is stable, and he is refusing any treatment. 5. Living will: Do Not Resuscitate. 6. Continue to follow up over the weekend. Optimize the treatment. LEVEL OF DOCUMENTATION: 35 minutes with the plan of care, discussing with the family since the situation is somewhat critical. cc: Anuj Soto MD
--- NOTE | 2018-08-25 19:13 | Diag Imaging Result Doc PS360 ---
EXAM: CHEST-PORTABLE HISTORY: CHF TECHNIQUE: Portable chest single view COMPARISON: 08/24/2018 FINDINGS: The lungs are well expanded. The heart is mildly enlarged. Sternal wires are present. The vessels are not distended. There are no infiltrates. No effusion identified. IMPRESSION: Cardiomegaly, but no congestive failure. Electronically signed by Ricki Santos 08/25/2018 7:10 PM
[2018-08-25] MEDS: LIPITOR PO SCH (20:30)
[2018-08-26] MEDS: LOVENOX SUBQ SCH ×3 (00:04→20:08)
[2018-08-26 06:27] LABS: CALCIUM 8.2 mg/dL (8.8-10.2); CREATININE 1.8 mg/dL (0.7-1.2); MAGNESIUM 2.2 mg/dL (1.5-2.7); POTASSIUM 4.1 mmol/L (3.5-5.1)
[2018-08-26] MEDS: PLAVIX PO SCH (08:22)
[2018-08-26] MEDS: ENTRESTO 24 MG-26 MG TABLET PO SCH (08:22)
[2018-08-26] MEDS: ASPIRIN PO SCH (08:22)
[2018-08-26] MEDS: TOPROL XL PO SCH ×2 (08:22→20:07)
[2018-08-26] MEDS: LASIX PO SCH (08:22)
--- NOTE | 2018-08-26 11:11 | PROGRESS NOTE ---
DATE: 08/26/2018 SUBJECTIVE: Mr. Waldron has orthostatic hypotension. His blood pressure dropped from 101/55 to 67/45. He has been advised to stay in bed and urinate, probably either use a diaper or catheter or use a urine pot. However, he wants to stand up every time when he wants to urinate. He has fallen, passed out. He injured his right external ear where he has bruises. He has also bruises on his right arm. His lungs are clear. Heart sounds are normal. He has positive troponins. Electrolytes are normal. BUN was 27, creatinine 1.8. Chest x-ray shows cardiomegaly. He had pleural fluid. So far, the cultures are negative. I told him to call the nursing staff every time he wants to get up, or nursing staff can help him take to the bathroom if he can tolerate it, we can do that. Otherwise he will need to stay in bed. He has agreed to that for the time being. -2 cc: MD Anuj Worthington MD
--- NOTE | 2018-08-26 11:13 | PROGRESS NOTE ---
DATE: 08/26/2018 ADDENDUM: Mr. Waldron discussed with his about his condition. She wants us to cut down on the medication, Lasix to 20 mg and cut down the Entresto to only 1 time a day. We will try to do that. cc: MD Anuj Worthington MD
[2018-08-26] MEDS: ROBITUSSIN PO PRN (17:39)
[2018-08-26] MEDS: LIPITOR PO SCH (20:07)
[2018-08-27 06:23] LABS: CALCIUM 8.4 mg/dL (8.8-10.2); CREATININE 1.8 mg/dL (0.7-1.2); MAGNESIUM 2.2 mg/dL (1.5-2.7); POTASSIUM 4.5 mmol/L (3.5-5.1)
[2018-08-27] MEDS: ASPIRIN PO SCH (08:31)
[2018-08-27] MEDS: ENTRESTO 24 MG-26 MG TABLET PO SCH (08:31)
[2018-08-27] MEDS: TOPROL XL PO SCH ×2 (08:32→20:14)
[2018-08-27] MEDS: PLAVIX PO SCH (08:32)
[2018-08-27] MEDS: LOVENOX SUBQ SCH ×2 (08:32→20:14)
[2018-08-27] MEDS ORDERED: LASIX LIQUID PO SCH (09:00)
--- NOTE | 2018-08-27 12:49 | PROGRESS NOTE ---
DATE: 08/27/2018 Mr. Waldron is feeling better. His blood pressure today was 93/49. Overall, the pressure has improved. He does not have much evidence of orthostatic hypotension. No more history of fall. He has been going to the bathroom with help. He is not very dizzy. His electrolytes are normal. Magnesium was 2.2. We reduced the Lasix from 40 to 20 mg yesterday. BUN is 26, creatinine 1.5. Overall condition is stable. We are going to continue with the current management on him. -5 cc: MD Anuj Worthington MD
[2018-08-27] MEDS: ROBITUSSIN PO PRN (19:43)
[2018-08-27] MEDS: LIPITOR PO SCH (20:14)
--- NOTE | 2018-08-28 07:32 | EKG Report ---
Test Performed on : 08/26/2018 05:48:04 AM Test Reason : NQWMI Blood Pressure : / mmHG Vent. Rate : 083 BPM Atrial Rate : 083 BPM P-R Int : 184 ms QRS Dur : 136 ms QT Int : 428 ms P-R-T Axes : 052 -02 117 degrees QTc Int : 502 ms Normal sinus rhythm. Possible Left atrial enlargement Nonspecific intraventricular block Inferior infarct , age undetermined Abnormal ECG When compared with ECG of 25-AUG-2018 18:23, (Unconfirmed) premature ventricular complexes. are no longer present Nonspecific T wave abnormality no longer evident in Anterior leads Confirmed by Ramu DANIELS, Ezekiel Calloway ([id number]) on 08/28/2018 7:58:39 AM
--- NOTE | 2018-08-28 07:33 | EKG Report ---
Test Performed on : 08/25/2018 6:23:33 PM Test Reason : chestpain Blood Pressure : / mmHG Vent. Rate : 090 BPM Atrial Rate : 090 BPM P-R Int : 186 ms QRS Dur : 138 ms QT Int : 428 ms P-R-T Axes : 046 005 127 degrees QTc Int : 523 ms Sinus rhythm. with occasional premature ventricular complexes. Possible Left atrial enlargement Nonspecific intraventricular block Nonspecific T wave abnormality Abnormal ECG When compared with ECG of 25-AUG-2018 08:16, (Unconfirmed) premature ventricular complexes. are now present Nonspecific T wave abnormality now evident in Anterior leads Confirmed by Ramu DANIELS, Ezekiel Calloway ([id number]) on 08/28/2018 7:58:32 AM
[2018-08-28] MEDS: PLAVIX PO SCH (08:57)
[2018-08-28] MEDS: TOPROL XL PO SCH ×2 (08:58→20:10)
[2018-08-28] MEDS: ENTRESTO 24 MG-26 MG TABLET PO SCH (09:17)
[2018-08-28] MEDS: ASPIRIN PO SCH (09:17)
[2018-08-28] MEDS: NEOSPORIN OINTMENT TUBE TOP SCH ×2 (09:17→20:10)
[2018-08-28] MEDS: LASIX LIQUID PO SCH (12:25)
[2018-08-28] MEDS ORDERED: XYLOCAINE 1% 100 ML, EPINEPHRINE 1 MG, SODIUM BICARBONATE 8.4% 12.5 MEQ in NS 1,000 ML INJ ONE (13:30)
--- NOTE | 2018-08-28 19:50 | PROGRESS NOTE ---
DATE: 08/28/2018 SUBJECT: Events noted over the weekend. Patient continues to have orthostatic hypotension. Dr. Hinds adjust the medication. Upon standing blood pressure was dropping almost 60/40. REVIEW OF SYSTEMS: None reported. EXAMINATION: Temperature is 98 degrees, upon standing now blood pressure is 90/50.HEENT: Within normal limits. JVD is decreased. Chest: Clear. Heart: Sounds are regular. No pedal edema noted. ASSESSMENT AND PLAN: 1. Non-Q myocardial infarction, currently pain free. 2. Orthostatic hypotension. 3. Hyperlipidemia. 4. Ischemic cardiomyopathy. PLAN OF CARE: Is discontinue Lovenox, continue on aspirin, Plavix, Lipitor and Entresto was decreased to 1 a day and metoprolol we can use 25 once a day and continue to monitor orthostatic blood pressure. Decrease the Lasix 20 mg daily and discontinue Levaquin. Family has agreed to go for rehab. Consult Accessioner. LEVEL OF DOCUMENTATION: 25 minutes. cc: Anuj Soto MD
[2018-08-28] MEDS: LIPITOR PO SCH (20:09)
[2018-08-28] MEDS: ROBITUSSIN PO PRN (20:10)
[2018-08-29] MEDS ORDERED: CORTROSYN IV ONE (07:37)
[2018-08-29] MEDS: ASPIRIN PO SCH (08:21)
[2018-08-29] MEDS: ENTRESTO 24 MG-26 MG TABLET PO SCH (08:21)
[2018-08-29] MEDS: NEOSPORIN OINTMENT TUBE TOP SCH ×2 (08:21→20:01)
[2018-08-29] MEDS: PLAVIX PO SCH (08:22)
[2018-08-29] MEDS: TOPROL XL PO SCH ×2 (08:22→20:02)
[2018-08-29] MEDS: ROBITUSSIN PO PRN (11:01)
[2018-08-29] MEDS: LASIX LIQUID PO SCH (11:01)
[2018-08-29] MEDS: LIPITOR PO SCH (20:02)
--- NOTE | 2018-08-29 21:34 | PROGRESS NOTE ---
DATE: 08/29/2018 SUBJECTIVE: The patient is out of the bed. He is still very orthostatic and dizzy. I backed off a lot of medications. He is euvolemic. PHYSICAL EXAMINATION: Vital Signs: Temperature is 98, pulse 85 upon standing. Blood pressure is 80/40. HEENT: Within normal limits. Neck: Supple. JVD is not elevated. Chest: Clear. Heart: Sounds are regular. ASSESSMENT AND PLAN: 1. Congestive heart failure due to acute ischemic cardiomyopathy. 2. Orthostatic hypotension. 3. Chronic kidney disease. 4. Hyperlipidemia. PLAN OF CARE: Cortisone stimulation test. Continue to monitor orthostatic blood pressure. We will place a KATE hose and if he continues to have orthostatic, we will consider using midodrine 5 mg t.i.d. In the meantime, continue on low dose of Lasix, metoprolol, Crestor, Lipitor and aspirin. Family is requesting for rehab. He has a bed available in [facility]. Living will, DNR and will follow up. LEVEL OF DOCUMENTATION: 25 minutes. cc: Anuj Soto MD
[2018-08-30 08:23] VITALS: BP 118/83
[2018-08-30] MEDS: NEOSPORIN OINTMENT TUBE TOP SCH (08:28)
[2018-08-30] MEDS: ENTRESTO 24 MG-26 MG TABLET PO SCH (08:28)
[2018-08-30] MEDS: ASPIRIN PO SCH (08:28)
[2018-08-30] MEDS: TOPROL XL PO SCH (08:35)
[2018-08-30] MEDS: PLAVIX PO SCH (08:35)
--- NOTE | 2018-08-30 09:28 | DISCHARGE SUMMARY ---
ADMISSION DATE: 08/20/2018 DISCHARGE DATE: 08/30/2018 DISCHARGING DIAGNOSIS: Acute congestive heart failure due to systolic dysfunction, ejection fraction is 15% to 20% due to ischemic cardiomyopathy. SECONDARY DIAGNOSES: 1. Ischemic cardiomyopathy, ejection fraction is 15% to 20%. 2. Chronic kidney disease stage 3. Creatinine 1.8. 3. Coronary artery disease. 4. Hyperlipidemia. 5. Vitamin D deficiency. 6. 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 CONSULTS: Dr. Leal. PROCEDURES: Thoracentesis on the left side drained 700 mL of transudative fluid. BRIEF HISTORY: Please see the H and P that was done on 08/20/2018. In brief, he is a 78-year-old white male with known history of ischemic cardiomyopathy, status post bypass, chronic systolic heart failure, noncompliant, allergies to several medications, and is very cautious about any new medicines. He came in with shortness of breath, persistent cough while lying down. He stopped taking lisinopril. He thinks that is the one causing the cough. At the time of admission, the patient is in congestive heart failure. HOSPITAL COURSE: The patient was given oxygen and IV Lasix. Echocardiography showed severe LV dysfunction. EF is 15% to 20%. Dr. Leal was consulted. The patient has excellent diuresis. The patient has a persistent loculated effusion on the left side, which was drained by radiologist. After the procedure, the patient had syncope and recurrent dizzy spells due to low blood pressure. The patient was started on metoprolol and Entresto. The following day, he complains of chest pain. EKG did not show any injury or ischemia. He has a positive troponin, normal CK. The patient could have non Q-wave WI. He was started on aspirin, Plavix, and Lovenox, and the patient refused. Dr. Leal started on Lipitor to target levels. The patient was moved out of the floor to the [facility]. In the [facility], he has recurrent dizzy spells and falling due to significant orthostatic hypotension. All the medicines were stopped for a while. Cortisone stimulation test is negative. We cut down the doses of metoprolol and Entresto. He was given KATE hose and low dose of ProAmatine. He does have a living will, DO NOT RESUSCITATE. The patient's family wants to be transferred to [facility] for rehab. IMAGING AND LABORATORY DATA: CBC: White cell count 6.8, hematocrit 37, platelets 172,000. PT 16, INR 1.2. ABG: PH is 7.42, pCO2 of 36, PO2 of 74 on 28%. Sodium 138, potassium 4.5, BUN 26, creatinine 1.8. Routine cultures were negative. EKG: Normal sinus, nothing acute. Chest x-ray: Cardiomegaly. No pleural effusions. Echocardiography reported EF is less than 20%, ischemic cardiomyopathy, pulmonary hypertension. At the time of discharge, his weight is 173 pounds. Upon standing, his blood pressure dropped to around 98 systolic. DISCHARGE INSTRUCTIONS: Ambulation with assistance to prevent falls. Aspirin 81 mg daily, Lipitor 40 daily, Lasix 20 daily, metoprolol 25 daily, Entresto 24 daily, KATE hose, orthostatic blood pressure twice a day. At nighttime, he needs a bedside commode and assistance. ProAmatine 5 mg b.i.d. for orthostatic blood pressure. If his blood pressure is stable, we can discontinue ProAmatine. Living will, DO NOT RESUSCITATE. Follow up in my office, as well as Dr. Leal. We also discussed about AICD placement, and the patient is not interested. cc: MD Ian Pa MD
== END 2018-08-30 10:58 | DRG 281 ==
LOC: ED 10:08 → 3N 16:21 → 3S 08-25 13:33
PROVIDERS: ADMIT Internal Medicine; ATTEND Internal Medicine
CPT/HCPCS: 32421; 32555; 71010; 71020; 71045; 71046; 71250; 80048; 80053; 82533; 82550; 82805; 83735; 83880; 84484; 85025; 85610; 85730; 87070; 87075; 88112; 93005; 93010; 93306; 94761; 97163; 97165; 97535; 99285; A9270; J0834; J1940; J7030; S0171